=== PATIENT | male | born 1965 ===

== ENCOUNTER 2023-01-12 06:23 | Day surgery (SDC) | payer BC ==
[2023-01-12] MEDS ORDERED: Ringers Lactate 1,000 ML IV ONE (07:07)
[2023-01-12] MEDS ORDERED: LIDOCAINE 1% MPF 5 ML VIAL ONE (07:55)
[2023-01-12] MEDS ORDERED: propofoL 200 MG/20 ML VIAL IV ONE ×2 (07:55)
[2023-01-12 08:35] VITALS: TEMP 97.2
[2023-01-12 08:55] VITALS: BP 97/71; O2SAT 97
== END 2023-01-12 09:12 | disposition home or self-care (01) ==
LOC: OR 06:23
PROVIDERS: ATTEND Internal Medicine Gastroenterology
PROC: 0DBL8ZX Excision of Transverse Colon, Via Natural or Artificial Opening Endoscopic, Diagnostic (ICD-10-PCS; 2023-01-12)
PROC: 0DBK8ZX Excision of Ascending Colon, Via Natural or Artificial Opening Endoscopic, Diagnostic (ICD-10-PCS; principal; 2023-01-12 07:30)
DX: Z12.11 Encounter for screening for malignant neoplasm of colon (principal); Z86.010 Personal history of colon polyps; K64.8 Other hemorrhoids; K63.5 Polyp of colon
CPT/HCPCS: 45380; 88305; J2704; J2001; J7120